=== PATIENT | female | born 1965 | race Caucasian/White ===

== ENCOUNTER → 2017-04-27 | Outpatient (CLI) | payer BC ==
[~2017-04-27] MED LIST: ACHYD1T PO; ASPI-84 PO; CETI10TA17 PO; DCS100C PO; ESTR2TAB PO; IBP800T PO; MULT1CAP27 PO
--- NOTE | 2017-04-30 08:37 | Diagnostic Imaging Report ---
Bilateral screening mammogram. The current study was also evaluated with a Computer Aided Detection (CAD) system. INDICATION: Screening. No current complaints stated on the questionnaire. COMPARISON: 04/22/2016. FINDINGS: The breasts are composed of scattered fibroglandular densities with slightly dense parenchyma in the outer aspect of each breast superiorly. There is slight increased fullness in the outer aspect of the left breast parenchyma seen compared to the prior exams. No definitive abnormality on the corresponding MLO view is seen, however. The right breast demonstrates no significant change. IMPRESSION: Focal compression view evaluation and ultrasound for increased fullness asymmetry along the outer aspect of the left breast is recommended. ACR BI-RADS Category 0: Incomplete. (Needs additional imaging evaluation). Result letter will be mailed to the patient. Note: At least 10% of breast cancer is not imaged by mammography. Dictated by: Dictated on workstation # [id number]
== END ==
LOC: RAD 14:39
PROVIDERS: ATTEND Obstetrics & Gynecology
DX: Z12.31 Encounter for screening mammogram for malignant neoplasm of breast (principal)
CPT/HCPCS: 77067

== ENCOUNTER → 2017-05-25 | Outpatient (CLI) | payer BC ==
--- NOTE | 2017-05-25 14:33 | Diagnostic Imaging Report ---
Left breast diagnostic mammogram with tomography evaluation. INDICATION: Focal asymmetry in the upper outer aspect of the left breast. CAD is utilized. FINDINGS: There is focal asymmetry in the upper outer aspect of the left breast that appears to resemble parenchyma on the focal compression views with no definite underlying mass. IMPRESSION: Findings are favored to be related to summation artifact of parenchyma. Ultrasound evaluation pending. ACR BI-RADS Category 0: Incomplete. (Needs additional imaging evaluation). Result letter will be mailed to the patient. Note: At least 10% of breast cancer is not imaged by mammography. Dictated by: Dictated on workstation # [id number]
--- NOTE | 2017-05-25 16:55 | Diagnostic Imaging Report ---
EXAMINATION: Left breast ultrasound. INDICATION: Focal asymmetry in the upper outer aspect of the left breast. FINDINGS: There is a questionable hypoechoic area focally seen in the left breast at the 2 o'clock zone 5 cm from the nipple. This is only 7 x 3.9 mm in size and has convex margins and flows with the tissue around it without apparent mass effect. Its echogenicity is close to the rest of the fat lobules and probably stands out because of the thick band of fibroglandular tissue around it. No internal vascularity or shadowing. This is also smaller than the area of asymmetry on the mammography and does not appear to correlate. No suspicious lesion is seen. IMPRESSION: There is no definite abnormality. The focal asymmetry on mammography is probably summation artifact of parenchyma. Annual screening mammograms are recommended. ACR BI-RADS Category 2: Benign findings. Dictated by: Dictated on workstation # [id number]
== END ==
LOC: RAD 13:41
PROVIDERS: ATTEND Obstetrics & Gynecology
DX: N64.89 Other specified disorders of breast (principal)
CPT/HCPCS: 76642

== ENCOUNTER → 2019-11-15 | Outpatient (CLI) | payer BC ==
--- NOTE | 2019-11-15 13:22 | Diagnostic Imaging Report ---
INDICATION: Routine screening. COMPARISON: Comparison is made with prior mammograms from 04/27/2017 and 04/22/2016. TECHNIQUE: 2-D and 3-D bilateral screening mammography was performed. The current study was also evaluated with a Computer Aided Detection (CAD) system. 3-D tomosynthesis was also performed and reviewed. FINDINGS: Scattered fibroglandular densities are again noted bilaterally. Circumscribed densities in the left breast appear stable. No new mass or malignant-appearing microcalcifications are seen. The axillae are unremarkable. IMPRESSION: No mammographic features suspicious for malignancy are identified. ACR BI-RADS Category 2: Benign findings. Result letter will be mailed to the patient. Note: At least 10% of breast cancer is not imaged by mammography. Dictated by: Dictated on workstation # [id number]
== END ==
LOC: RAD 08:37
PROVIDERS: ATTEND Obstetrics & Gynecology
DX: Z12.31 Encounter for screening mammogram for malignant neoplasm of breast (principal)
CPT/HCPCS: 77067

== ENCOUNTER → 2021-02-04 | Outpatient (CLI) | payer BC ==
--- NOTE | 2021-02-04 18:29 | Diagnostic Imaging Report ---
INDICATION: Routine screening. COMPARISON is made with prior mammograms from 11/15/2019 and 04/27/2017. 2-D and 3-D bilateral screening mammography was performed with CAD. Scattered fibroglandular densities are identified bilaterally. A benign nodule in the left breast is stable. No new mass or malignant appearing microcalcifications are seen. Axillae are unremarkable. IMPRESSION: BI-RADS Category 2. No mammographic features suspicious for malignancy are identified. ACR BI-RADS Category 2: Benign findings. Result letter will be mailed to the patient. Note: At least 10% of breast cancer is not imaged by mammography. Dictated by: Dictated on workstation # [id number]
== END ==
LOC: RAD 14:45
PROVIDERS: ATTEND Obstetrics & Gynecology
DX: Z12.31 Encounter for screening mammogram for malignant neoplasm of breast (principal)
CPT/HCPCS: 77063; 77067

== ENCOUNTER → 2022-03-12 | Outpatient (CLI) | payer BC ==
--- NOTE | 2022-03-12 13:28 | Diagnostic Imaging Report ---
Indication: Routine screening. Comparison is made with prior mammogram from 02/04/2021 and 11/15/2019. 2-D and 3-D bilateral screening mammography was performed with CAD. CAD is utilized. The current study was also evaluated with a Computer Aided Detection (CAD) system. Scattered fibroglandular densities are identified bilaterally. A benign nodule outer left breast are stable. No spiculated mass or malignant-appearing microcalcifications are seen. Axillae are unremarkable. IMPRESSION: BI-RADS Category 2 No mammographic features suspicious for malignancy are identified. ACR BI-RADS Category 2: Benign findings. Result letter will be mailed to the patient. Note: At least 10% of breast cancer is not imaged by mammography. Dictated by: Dictated on workstation # [id number]
== END ==
LOC: RAD 10:45
PROVIDERS: ATTEND Obstetrics & Gynecology
DX: Z12.31 Encounter for screening mammogram for malignant neoplasm of breast (principal)
CPT/HCPCS: 77063; 77067

== ENCOUNTER → 2023-04-08 | Outpatient (CLI) | payer BC ==
--- NOTE | 2023-04-09 09:55 | Diagnostic Imaging Report ---
INDICATION: Routine screening. Comparison is made with prior mammogram from 03/12/2022 and 02/04/2021. 2-D and 3-D bilateral screening mammography was performed with CAD. Scattered fibroglandular densities are identified bilaterally. A density in the superior right breast on MLO view appears more rounded when compared with prior exams. Additional views would be recommended. The left breast appears stable. No malignant-appearing microcalcifications are seen. Axillae are unremarkable. IMPRESSION: Density in the superior right breast appears to be slightly more prominent when compared to prior exams and additional views are recommended for further evaluation. ACR BI-RADS Category 0: Incomplete. (Needs additional imaging evaluation). Result letter will be mailed to the patient. Note: At least 10% of breast cancer is not imaged by mammography. BI-RADS 0 Dictated by: Dictated on workstation # [id number]
== END ==
LOC: RAD 14:37
PROVIDERS: ATTEND Nurse Practitioner
DX: Z12.31 Encounter for screening mammogram for malignant neoplasm of breast (principal)
CPT/HCPCS: 77063; 77067

== ENCOUNTER → 2023-05-06 | Outpatient (CLI) | payer BC ==
--- NOTE | 2023-05-06 14:42 | Diagnostic Imaging Report ---
INDICATION: Right breast density. Patient presents for additional views. Unilateral right 2-D and 3-D diagnostic mammography was performed. This includes spot compression exaggerated CC and mediolateral views as well as conventional 90 degrees lateral view and conventional exaggerated CC view. There is some persistent somewhat rounded density in the upper right breast on the spot compression ML and conventional 90 lateral view. This shows some dispersion in the CC views in this may represent an island of fibroglandular tissue. Even so, further evaluation of this area with ultrasound is recommended. No other abnormalities are seen. IMPRESSION: Persistent density in the upper outer right breast approximately 12 cm from the nipple. Further evaluation with ultrasound is recommended and will be performed today. ACR BI-RADS Category 0: Incomplete. (Needs additional imaging evaluation). Result letter will be mailed to the patient. Note: At least 10% of breast cancer is not imaged by mammography. BI-RADS Category 0 Dictated by: Dictated on workstation # [id number]
--- NOTE | 2023-05-06 16:34 | Diagnostic Imaging Report ---
INDICATION: Right breast density. Correlation is made with diagnostic mammogram earlier the same day and screening mammogram from 04/08/2023. Sonographic interrogation upper outer right breast was performed. There is a small cyst at the 10 o'clock location, 10 to 11 cm from the nipple measuring 5 mm. This likely incidental. No dominant mass is identified. No mass is identified to account for the density noted mammographically. Density noted mammographically likely represents fibroglandular tissue. IMPRESSION: Small right breast cyst. No suspicious abnormalities identified to account for the mammographic density. The patient may return to routine annual screening mammography. ACR BI-RADS Category 2: Benign findings. Result letter will be mailed to the patient. Note: At least 10% of breast cancer is not imaged by mammography. BI-RADS Category 2 Dictated by: Dictated on workstation # [id number]
== END ==
LOC: RAD 14:05
PROVIDERS: ATTEND Nurse Practitioner
DX: N60.01 Solitary cyst of right breast (principal)
CPT/HCPCS: 76642; 77065; G0279